=== PATIENT | female | born 1970 | race Caucasian/White ===

== ENCOUNTER 2018-06-13 17:44 | Inpatient (IN) | payer MEDICARE, MEDICAID ==
[~2018-06-13] VITALS: Ht 170.2 cm; Wt 84.1 kg
[~2018-06-13 17:44] MED LIST: ARIP15TA2 PO; BACTDSB PO; BENZ1TAB10 PO; BUSP5TAB3 PO; CLON1 PO; DIPH25 PO; DIVA-76 PO; DOCU250C91 PO; QUET200T PO; SENN-175 PO; TOPI25 PO; [UNRECOGNIZED DRUG - CODE] PO
[2018-06-13 18:38] LABS: GLUCOSE,POINT OF CARE 143 MG/DL (70-110)
[2018-06-13] MEDS ORDERED: SODIUM CHLORIDE 0.9% 2,000 ML IV ONE (19:00)
[2018-06-13 19:26] LABS: BASOPHILS % (AUTO) 0.4 % (0.0-2.0); EOSINOPHILS % (AUTO) 0.1 % (1.0-6.0); HEMATOCRIT 36.1 % (36-46); HEMOGLOBIN 12.2 g/dL (12.0-16.0); LYMPHOCYTES # (AUTO) 0.6 K/uL (1.0-4.8); LYMPHOCYTES % (AUTO) 8.3 % (22.0-44.0); MEAN CORPUSCULAR HEMOGLOBIN 29.9 pg (26.0-34.0); MEAN CORPUSCULAR HGB CONC 33.7 G/dL (31.0-37.0); MEAN CORPUSCULAR VOLUME 89 fL (80-100); MONOCYTES # (AUTO) 1.3 K/uL (0.1-1.0); MONOCYTES % (AUTO) 18.4 % (2.0-9.0); NEUTROPHILS % (AUTO) 72.8 % (40.0-70.0); PLATELET COUNT (AUTO) 271 K/uL (150-450); RED BLOOD CELL COUNT(AUTO) 4.06 MIL/uL (4.00-5.20); RED CELL DISTRIBUTION WIDTH 14.6 % (11.5-14.5)
[2018-06-13 19:35] LABS: APPEARANCE,URINE TURBID (CLEAR); BILIRUBIN,URINE NEGATIVE (NEGATIVE); GLUCOSE, URINE (UA) NEGATIVE (NEGATIVE); KETONES,URINE TRACE mg/dL (NEGATIVE); LEUKOCYTE ESTERASE ,URINE LARGE (NEGATIVE); NITRATE,URINE NEGATIVE (NEGATIVE); OCCULT BLOOD,URINE MODERATE (NEGATIVE); PH,URINE 5.5 (5.0-8.0); PROTEIN,URINE TRACE (NEGATIVE)
[2018-06-13 19:42] LABS: ANION GAP 11 mmol/L (8-16); CALCIUM, TOTAL 8.9 mg/dL (8.8-10.5); CARBON DIOXIDE 28 mmol/L (22-29); CHLORIDE 104 mmol/L (98-107); CREATININE 0.84 mg/dL (0.60-1.30); GLOMERULAR FILTR. RATE CALC > 60 mL/min (>60); GLUCOSE,RANDOM 136 mg/dL (70-110); POTASSIUM 3.4 mmol/L (3.5-5.1); SODIUM SERUM 143 mmol/L (136-145); UREA NITROGEN, BLOOD 11 mg/dL (7-18)
[2018-06-13] MEDS ORDERED: ACETAMINOPHEN 1000 MG/ISO-OSM 100 ML IV ONE (19:45)
[2018-06-13] MEDS ORDERED: SODIUM CHLORIDE 0.9% 1,000 ML IV ONE ×2 (19:45→22:15)
[2018-06-13 19:46] LABS: ALANINE AMINOTRANSFERASE 35 U/L (12-78); ALBUMIN 2.6 g/dL (3.4-5.0); ALKALINE PHOSPHATASE 116 U/L (46-116); ASPARTATE AMINOTRANSFERASE 63 U/L (15-37); BILIRUBIN,TOTAL 0.3 mg/dL (0.1-1.0); LIPASE 175 U/L (73-393); VALPROIC ACID 30 mcg/mL (50-100)
[2018-06-13 19:51] LABS: LACTIC ACID 1.6 mmol/L (0.4-2.0)
[2018-06-13 19:54] LABS: B-TYPE NATRIURETIC PEPTIDE 29 pg/mL (0-100)
[2018-06-13 20:40] LABS: BACTERIA,URINE Many /HPF (None Seen); WBC,URINE >100 /HPF (0-5)
[2018-06-13 20:41] LABS: SQUAMOUS EPITHELIAL CELL,UR Few /LPF (None Seen)
[2018-06-13] MEDS ORDERED: CefTRIAXone SODIUM 1 GM in DEXTROSE 5%-WATER 10 ML IV ONE (20:45)
[2018-06-13 21:06] LABS: AMMONIA 15 umol/L (11-32); TROPONIN I < 0.02 ng/mL (0.00-0.05)
[2018-06-13 21:54] VITALS: BP 136/83
[2018-06-13] MEDS ORDERED: ACETAMINOPHEN 325 MG TABLET PO PRN (22:15)
[2018-06-13] MEDS ORDERED: MORPHINE SULFATE 2 MG/ML SYRINGE IVP PRN (22:15)
[2018-06-13] MEDS ORDERED: ONDANSETRON HCL 4 MG/2 ML VIAL IVP PRN (22:15)
[2018-06-13] MEDS ORDERED: ZOLPIDEM TARTRATE 5 MG TABLET PO PRN (22:15)
[2018-06-13] MEDS ORDERED: MAGNESIUM HYDROXIDE SUSPENSION 30 ML UDCUP PO PRN (22:15)
[2018-06-13] MEDS ORDERED: HYDROCODONE/ACETAMINOPHEN 5-325 MG TABLET PO PRN (22:15)
[2018-06-13] MEDS ORDERED: BISACODYL 10 MG RECTAL RECTAL SUPPOSITORY PR PRN (22:15)
[2018-06-13] MEDS: HEPARIN SODIUM,PORCINE 5,000 UNITS/ML VIAL SQ SCH (22:52)
[2018-06-13 23:19] VITALS: BP 132/83
[2018-06-14 07:29] VITALS: BP 155/91
[2018-06-14] MEDS: ARIPiprazole 15 MG TABLET PO SCH (09:00)
[2018-06-14] MEDS: QUEtiapine FUMARATE 200 MG TABLET PO SCH ×3 (09:28→20:55)
[2018-06-14] MEDS: BENZTROPINE MESYLATE 1 MG TABLET PO SCH ×2 (09:28→20:54)
[2018-06-14] MEDS: ClonazePAM 1 MG TABLET PO SCH ×2 (09:28→20:54)
[2018-06-14] MEDS: DOCUSATE SODIUM 100 MG CAPSULE PO SCH ×2 (09:28→20:54)
[2018-06-14] MEDS: PANTOPRAZOLE SODIUM 40 MG DR TABLET PO SCH (09:29)
[2018-06-14] MEDS: TOPIRAMATE 25 MG TABLET PO SCH ×2 (09:29→20:54)
[2018-06-14] MEDS: HEPARIN SODIUM,PORCINE 5,000 UNITS/ML VIAL SQ SCH ×2 (09:29→23:25)
[2018-06-14] MEDS: POTASSIUM CHLORIDE 20 MEQ ER TABLET PO PRN ×2 (09:43→20:54)
[2018-06-14] MEDS: SODIUM CHLORIDE 0.9% 1,000 ML IV SCH ×2 (10:00→21:06)
[2018-06-14 12:00] VITALS: BP 130/77
[2018-06-14 15:43] VITALS: BP 128/83
[2018-06-14 19:54] VITALS: BP 143/86
[2018-06-14] MEDS: CefTRIAXone SODIUM 1 GM in DEXTROSE 5%-WATER 10 ML IV SCH (20:54)
[2018-06-14] MEDS: DIVALPROEX SODIUM 500 MG DR TABLET PO SCH (20:54)
[2018-06-14 23:25] VITALS: BP 121/83
[2018-06-15 04:28] VITALS: BP 137/81
[2018-06-15 06:47] LABS: HEMATOCRIT 34.1 % (36-46); HEMOGLOBIN 11.5 g/dL (12.0-16.0); LYMPHOCYTES # (AUTO) 1.2 K/uL (1.0-4.8); LYMPHOCYTES % (AUTO) 25.7 % (22.0-44.0); MEAN CORPUSCULAR HEMOGLOBIN 30.2 pg (26.0-34.0); MEAN CORPUSCULAR HGB CONC 33.7 G/dL (31.0-37.0); MEAN CORPUSCULAR VOLUME 90 fL (80-100); MONOCYTES # (AUTO) 0.8 K/uL (0.1-1.0); MONOCYTES % (AUTO) 17.7 % (2.0-9.0); NEUTROPHILS # (AUTO) 2.4 K/uL (1.8-7.7); NEUTROPHILS % (AUTO) 51.6 % (40.0-70.0); PLATELET COUNT (AUTO) 248 K/uL (150-450); RED BLOOD CELL COUNT(AUTO) 3.81 MIL/uL (4.00-5.20); RED CELL DISTRIBUTION WIDTH 14.3 % (11.5-14.5)
[2018-06-15 07:11] LABS: ANION GAP 12 mmol/L (8-16); CALCIUM, TOTAL 8.7 mg/dL (8.8-10.5); CARBON DIOXIDE 20 mmol/L (22-29); CHLORIDE 110 mmol/L (98-107); CREATININE 0.69 mg/dL (0.60-1.30); GLOMERULAR FILTR. RATE CALC > 60 mL/min (>60); GLUCOSE,RANDOM 89 mg/dL (70-110); POTASSIUM 3.5 mmol/L (3.5-5.1); SODIUM SERUM 142 mmol/L (136-145); UREA NITROGEN, BLOOD 8 mg/dL (7-18)
[2018-06-15 07:21] VITALS: BP 153/79
[2018-06-15] MEDS: SODIUM CHLORIDE 0.9% 1,000 ML IV SCH ×2 (09:14→22:53)
[2018-06-15] MEDS: DOCUSATE SODIUM 100 MG CAPSULE PO SCH ×2 (10:28→22:53)
[2018-06-15] MEDS: HEPARIN SODIUM,PORCINE 5,000 UNITS/ML VIAL SQ SCH ×3 (10:28→22:56)
[2018-06-15] MEDS: ARIPiprazole 15 MG TABLET PO SCH (10:28)
[2018-06-15] MEDS: BENZTROPINE MESYLATE 1 MG TABLET PO SCH (10:28)
[2018-06-15] MEDS: PANTOPRAZOLE SODIUM 40 MG DR TABLET PO SCH (10:29)
[2018-06-15] MEDS: QUEtiapine FUMARATE 200 MG TABLET PO SCH ×3 (10:29→22:55)
[2018-06-15] MEDS: TOPIRAMATE 25 MG TABLET PO SCH ×2 (10:29→22:53)
[2018-06-15] MEDS: ClonazePAM 1 MG TABLET PO SCH ×2 (10:29→22:53)
[2018-06-15 11:24] VITALS: BP 138/96
[2018-06-15] MEDS ORDERED: SODIUM CHLORIDE 0.9% 1,000 ML IV ONE (15:15)
[2018-06-15 15:27] VITALS: BP 158/75
[2018-06-15 19:49] VITALS: BP 152/92
[2018-06-15] MEDS: CefTRIAXone SODIUM 1 GM in DEXTROSE 5%-WATER 10 ML IV SCH (20:22)
[2018-06-15] MEDS: DIVALPROEX SODIUM 500 MG DR TABLET PO SCH (22:55)
[2018-06-16] VITALS (7 sets, daily range): BP systolic 126–147; BP diastolic 70–96
[2018-06-16] MEDS: BENZTROPINE MESYLATE 1 MG TABLET PO SCH ×2 (02:20→09:00)
[2018-06-16 05:57] LABS: ANION GAP 10 mmol/L (8-16); CALCIUM, TOTAL 8.8 mg/dL (8.8-10.5); CARBON DIOXIDE 23 mmol/L (22-29); CHLORIDE 108 mmol/L (98-107); CREATININE 0.66 mg/dL (0.60-1.30); GLOMERULAR FILTR. RATE CALC > 60 mL/min (>60); GLUCOSE,RANDOM 95 mg/dL (70-110); POTASSIUM 3.2 mmol/L (3.5-5.1); SODIUM SERUM 141 mmol/L (136-145); UREA NITROGEN, BLOOD 12 mg/dL (7-18)
[2018-06-16 06:25] LABS: BASOPHILS % (AUTO) 1.3 % (0.0-2.0); EOSINOPHILS % (AUTO) 4.7 % (1.0-6.0); HEMATOCRIT 36.9 % (36-46); HEMOGLOBIN 12.5 g/dL (12.0-16.0); LYMPHOCYTES # (AUTO) 1.2 K/uL (1.0-4.8); LYMPHOCYTES % (AUTO) 27.7 % (22.0-44.0); MEAN CORPUSCULAR HEMOGLOBIN 30.2 pg (26.0-34.0); MEAN CORPUSCULAR HGB CONC 33.8 G/dL (31.0-37.0); MEAN CORPUSCULAR VOLUME 89 fL (80-100); MONOCYTES # (AUTO) 0.8 K/uL (0.1-1.0); MONOCYTES % (AUTO) 18.7 % (2.0-9.0); NEUTROPHILS # (AUTO) 2.1 K/uL (1.8-7.7); NEUTROPHILS % (AUTO) 47.6 % (40.0-70.0); PLATELET COUNT (AUTO) 275 K/uL (150-450); RED BLOOD CELL COUNT(AUTO) 4.14 MIL/uL (4.00-5.20); RED CELL DISTRIBUTION WIDTH 14.3 % (11.5-14.5)
[2018-06-16] MEDS: HEPARIN SODIUM,PORCINE 5,000 UNITS/ML VIAL SQ SCH ×3 (08:33→23:32)
[2018-06-16] MEDS: DOCUSATE SODIUM 100 MG CAPSULE PO SCH ×2 (09:00→19:50)
[2018-06-16] MEDS: PANTOPRAZOLE SODIUM 40 MG DR TABLET PO SCH (09:00)
[2018-06-16] MEDS: TOPIRAMATE 25 MG TABLET PO SCH ×2 (09:00→19:50)
[2018-06-16] MEDS ORDERED: ARIPiprazole 15 MG TABLET PO SCH (09:00)
[2018-06-16] MEDS: ClonazePAM 1 MG TABLET PO SCH (09:00)
[2018-06-16] MEDS: QUEtiapine FUMARATE 200 MG TABLET PO SCH (09:00)
[2018-06-16] MEDS ORDERED: SODIUM CHLORIDE 0.9% 500 ML IV ONE (13:17)
[2018-06-16] MEDS: SODIUM CHLORIDE 0.9% 1,000 ML IV SCH (13:22)
[2018-06-16] MEDS: POTASSIUM CHL 10 MEQ/WATER 50 ML IV PRN ×3 (13:25→17:37)
[2018-06-16] MEDS: CefTRIAXone SODIUM 1 GM in DEXTROSE 5%-WATER 10 ML IV SCH (19:51)
[2018-06-16] MEDS: POTASSIUM CHLORIDE 20 MEQ ER TABLET PO PRN (22:32)
[2018-06-17] MEDS: SODIUM CHLORIDE 0.9% 1,000 ML IV SCH ×2 (00:30→13:00)
[2018-06-17 03:54] VITALS: BP 146/77
[2018-06-17] MEDS ORDERED: LORazepam 2 MG/ML VIAL IM ONE (06:30)
[2018-06-17] MEDS ORDERED: HALOPERIDOL LACTATE 5 MG/ML VIAL IM ONE (06:30)
[2018-06-17] MEDS ORDERED: DiphenhydrAMINE HCL 50 MG/ML VIAL IM ONE (06:30)
[2018-06-17 06:35] LABS: BASOPHILS % (AUTO) 0.7 % (0.0-2.0); EOSINOPHILS % (AUTO) 3.3 % (1.0-6.0); HEMATOCRIT 37.3 % (36-46); HEMOGLOBIN 12.6 g/dL (12.0-16.0); LYMPHOCYTES # (AUTO) 1.2 K/uL (1.0-4.8); MEAN CORPUSCULAR HEMOGLOBIN 30.1 pg (26.0-34.0); MEAN CORPUSCULAR HGB CONC 33.7 G/dL (31.0-37.0); MEAN CORPUSCULAR VOLUME 89 fL (80-100); MONOCYTES # (AUTO) 0.8 K/uL (0.1-1.0); MONOCYTES % (AUTO) 14.8 % (2.0-9.0); NEUTROPHILS # (AUTO) 3.1 K/uL (1.8-7.7); NEUTROPHILS % (AUTO) 59.2 % (40.0-70.0); PLATELET COUNT (AUTO) 311 K/uL (150-450); RED BLOOD CELL COUNT(AUTO) 4.18 MIL/uL (4.00-5.20); RED CELL DISTRIBUTION WIDTH 14.6 % (11.5-14.5)
[2018-06-17 06:57] LABS: ANION GAP 15 mmol/L (8-16); CALCIUM, TOTAL 9.1 mg/dL (8.8-10.5); CARBON DIOXIDE 19 mmol/L (22-29); CHLORIDE 110 mmol/L (98-107); CREATININE 0.68 mg/dL (0.60-1.30); GLOMERULAR FILTR. RATE CALC > 60 mL/min (>60); GLUCOSE,RANDOM 107 mg/dL (70-110); POTASSIUM 3.5 mmol/L (3.5-5.1); SODIUM SERUM 144 mmol/L (136-145); UREA NITROGEN, BLOOD 14 mg/dL (7-18)
[2018-06-17] MEDS: PANTOPRAZOLE SODIUM 40 MG DR TABLET PO SCH (08:25)
[2018-06-17] MEDS: DOCUSATE SODIUM 100 MG CAPSULE PO SCH ×2 (08:25→20:08)
[2018-06-17] MEDS: TOPIRAMATE 25 MG TABLET PO SCH ×2 (08:25→20:08)
[2018-06-17] MEDS: HEPARIN SODIUM,PORCINE 5,000 UNITS/ML VIAL SQ SCH ×3 (08:26→23:38)
[2018-06-17 08:49] VITALS: BP 136/87
[2018-06-17 12:25] VITALS: BP 151/88
[2018-06-17] MEDS: LEVOFLOXACIN 500 MG/D5% WATER 100 ML IV SCH (16:29)
[2018-06-17 16:47] VITALS: BP 149/85
[2018-06-17 19:32] VITALS: BP 139/84
[2018-06-17] MEDS: DIVALPROEX SODIUM 500 MG DR TABLET PO SCH (20:08)
[2018-06-17] MEDS: RisperiDONE 1 MG TABLET PO SCH (20:08)
[2018-06-17] MEDS: HALOPERIDOL LACTATE 5 MG/ML VIAL IM PRN (20:55)
[2018-06-17] MEDS: LORazepam 2 MG/ML VIAL IM PRN (20:55)
[2018-06-18] MEDS: SODIUM CHLORIDE 0.9% 1,000 ML IV SCH ×2 (01:30→14:00)
[2018-06-18 06:05] VITALS: BP 128/76
[2018-06-18] MEDS: RisperiDONE 1 MG TABLET PO SCH (07:41)
[2018-06-18] MEDS: DIVALPROEX SODIUM 500 MG DR TABLET PO SCH (07:41)
[2018-06-18] MEDS: LORazepam 2 MG/ML VIAL IM PRN (07:41)
[2018-06-18] MEDS: HALOPERIDOL LACTATE 5 MG/ML VIAL IM PRN (07:41)
[2018-06-18] MEDS: HEPARIN SODIUM,PORCINE 5,000 UNITS/ML VIAL SQ SCH ×2 (07:42→16:00)
[2018-06-18] MEDS: DOCUSATE SODIUM 100 MG CAPSULE PO SCH (07:45)
[2018-06-18] MEDS: PANTOPRAZOLE SODIUM 40 MG DR TABLET PO SCH (07:45)
[2018-06-18] MEDS: TOPIRAMATE 25 MG TABLET PO SCH (07:48)
[2018-06-18 08:01] VITALS: BP 137/84
[2018-06-18 11:24] VITALS: BP 156/77
[2018-06-18 16:16] VITALS: BP 146/94
[2018-06-18] MEDS: LEVOFLOXACIN 500 MG/D5% WATER 100 ML IV SCH (16:44)
[2018-06-18 17:10] VITALS: BP 126/86
[2018-06-19] MEDS ORDERED: PANT40TA25 PO (19:51)
[2018-06-19] MEDS ORDERED: RISP1 PO (19:51)
[2018-06-19] MEDS ORDERED: HEPA500018 SQ (19:51)
[2018-06-19] MEDS ORDERED: LEVO500 PO (19:51)
== END 2018-06-18 17:35 | disposition home or self-care (01) | DRG 871 ==
LOC: EMS 17:45 → 6N 21:00
PROVIDERS: ADMIT Internal Medicine; ATTEND Internal Medicine
DX: A41.9 Sepsis, unspecified organism (principal); G93.41 Metabolic encephalopathy; N39.0 Urinary tract infection, site not specified; F72 Severe intellectual disabilities; N12 Tubulo-interstitial nephritis, not specified as acute or chronic; E87.6 Hypokalemia; F25.9 Schizoaffective disorder, unspecified; Z16.19 Resistance to other specified beta lactam antibiotics; R62.50 Unspecified lack of expected normal physiological development in childhood; B96.20 Unspecified Escherichia coli [E. coli] as the cause of diseases classified elsewhere; F41.9 Anxiety disorder, unspecified; K59.00 Constipation, unspecified; Z79.899 Other long term (current) drug therapy
CPT/HCPCS: 51702; 83605; 84132; 87040; 87081; 87086; 93005; 96365; 96375; 97162; 97530; 99291; J0131; J0696; J1200; J1630; J1644; J1956; J2060; J3480; J7030; J7040; J7060

== ENCOUNTER 2018-06-19 18:17 | Inpatient (IN) | payer MEDICARE, MEDICAID ==
[~2018-06-19] VITALS: Ht 167.6 cm; Wt 78.6 kg
[2018-06-19 19:33] LABS: GLUCOSE,POINT OF CARE 127 MG/DL (70-110)
[2018-06-19] MEDS ORDERED: LEVO500 PO (19:51)
[2018-06-19] MEDS ORDERED: PANT40TA25 PO (19:51)
[2018-06-19] MEDS ORDERED: RISP1 PO (19:51)
[2018-06-19] MEDS ORDERED: HEPA500018 SQ (19:51)
[2018-06-19 19:55] LABS: BASOPHILS % (AUTO) 0.8 % (0.0-2.0); EOSINOPHILS % (AUTO) 2.9 % (1.0-6.0); HEMATOCRIT 34.7 % (36-46); HEMOGLOBIN 11.7 g/dL (12.0-16.0); LYMPHOCYTES # (AUTO) 2.1 K/uL (1.0-4.8); LYMPHOCYTES % (AUTO) 19.7 % (22.0-44.0); MEAN CORPUSCULAR HEMOGLOBIN 29.9 pg (26.0-34.0); MEAN CORPUSCULAR HGB CONC 33.7 G/dL (31.0-37.0); MEAN CORPUSCULAR VOLUME 89 fL (80-100); MONOCYTES # (AUTO) 1.1 K/uL (0.1-1.0); MONOCYTES % (AUTO) 10.7 % (2.0-9.0); NEUTROPHILS # (AUTO) 6.9 K/uL (1.8-7.7); NEUTROPHILS % (AUTO) 65.9 % (40.0-70.0); PLATELET COUNT (AUTO) 330 K/uL (150-450); RED BLOOD CELL COUNT(AUTO) 3.91 MIL/uL (4.00-5.20); RED CELL DISTRIBUTION WIDTH 14.7 % (11.5-14.5)
[2018-06-19 20:09] LABS: ANION GAP 11 mmol/L (8-16); CALCIUM, TOTAL 8.9 mg/dL (8.8-10.5); CARBON DIOXIDE 25 mmol/L (22-29); CHLORIDE 103 mmol/L (98-107); CREATININE 0.89 mg/dL (0.60-1.30); GLOMERULAR FILTR. RATE CALC > 60 mL/min (>60); GLUCOSE,RANDOM 109 mg/dL (70-110); POTASSIUM 3.1 mmol/L (3.5-5.1); SODIUM SERUM 139 mmol/L (136-145); UREA NITROGEN, BLOOD 20 mg/dL (7-18)
[2018-06-19 20:15] LABS: ALANINE AMINOTRANSFERASE 62 U/L (12-78); ALBUMIN 2.2 g/dL (3.4-5.0); ALKALINE PHOSPHATASE 164 U/L (46-116); ASPARTATE AMINOTRANSFERASE 44 U/L (15-37); BILIRUBIN,TOTAL 0.3 mg/dL (0.1-1.0); TOTAL PROTEIN, SERUM 7.7 g/dL (6.4-8.2)
[2018-06-19 21:33] LABS: APPEARANCE,URINE CLOUDY (CLEAR); BILIRUBIN,URINE NEGATIVE (NEGATIVE); GLUCOSE, URINE (UA) NEGATIVE (NEGATIVE); KETONES,URINE NEGATIVE (NEGATIVE); LEUKOCYTE ESTERASE ,URINE NEGATIVE (NEGATIVE); NITRATE,URINE NEGATIVE (NEGATIVE); OCCULT BLOOD,URINE NEGATIVE (NEGATIVE); PROTEIN,URINE NEGATIVE (NEGATIVE)
[2018-06-19 21:37] LABS: AMPHET/METH SCREEN,URINE NEGATIVE (NEGATIVE); BARBITURATE SCREEN, URINE NEGATIVE (NEGATIVE); BENZODIAZEPINES SCREEN,URINE NEGATIVE (NEGATIVE); CANNABINOID SCREEN,URINE NEGATIVE (NEGATIVE); COCAINE SCREEN,URINE NEGATIVE (NEGATIVE); METHADONE SCREEN, URINE NEGATIVE (NEGATIVE); OPIATE SCREEN,URINE NEGATIVE (NEGATIVE); PHENCYCLIDINE SCREEN,URINE NEGATIVE (NEGATIVE)
[2018-06-19 21:43] LABS: BACTERIA,URINE Rare /HPF (None Seen); RBC,URINE 0-2 /HPF (0-2); WBC,URINE 0-2 /HPF (0-5)
[2018-06-19 21:44] LABS: SQUAMOUS EPITHELIAL CELL,UR Few /LPF (None Seen)
[2018-06-19] MEDS ORDERED: POTASSIUM CHLORIDE 10% 40 MEQ/30 ML LIQUID UDCUP PO ONE (22:00)
[2018-06-19] MEDS ORDERED: ACETAMINOPHEN 325 MG TABLET PO PRN (22:30)
[2018-06-19] MEDS ORDERED: OLANZapine 5 MG RAPDIS TABLET PO PRN (22:30)
[2018-06-19] MEDS ORDERED: IBUPROFEN 400 MG TABLET PO PRN (22:30)
[2018-06-19] MEDS ORDERED: HALOPERIDOL 5 MG TABLET PO PRN (22:30)
[2018-06-19] MEDS ORDERED: HALOPERIDOL LACTATE 5 MG/ML VIAL IVP ONE (23:30)
[2018-06-19] MEDS ORDERED: LORazepam 2 MG/ML VIAL IVP ONE (23:30)
[2018-06-20 01:15] VITALS: BP 129/82
[2018-06-20] MEDS ORDERED: ALBUTEROL SULFATE HFA 90 MCG/PUFF 8 GM INHALER IH PRN (06:45)
[2018-06-20] MEDS ORDERED: LOPERAMIDE HCL 2 MG CAPSULE PO PRN (06:45)
[2018-06-20] MEDS ORDERED: PETROLATUM,WHITE 71 GM JELLY TP PRN (06:45)
[2018-06-20] MEDS ORDERED: DOCUSATE SODIUM 100 MG CAPSULE PO PRN (06:45)
[2018-06-20] MEDS ORDERED: MAG HYDROX/AL HYDROX/SIMETH ES 30 ML SUSPENSION UDCUP PO PRN (06:45)
[2018-06-20] MEDS ORDERED: ONDANSETRON HCL 4 MG TABLET PO PRN (06:45)
[2018-06-20] MEDS ORDERED: MAGNESIUM HYDROXIDE SUSPENSION 30 ML UDCUP PO PRN (06:45)
[2018-06-20] MEDS ORDERED: CloNIDine HCL 0.1 MG TABLET PO PRN (06:45)
[2018-06-20 06:56] LABS: BASOPHILS % (AUTO) 0.9 % (0.0-2.0); EOSINOPHILS % (AUTO) 6.4 % (1.0-6.0); HEMATOCRIT 33.5 % (36-46); HEMOGLOBIN 11.3 g/dL (12.0-16.0); LYMPHOCYTES # (AUTO) 1.8 K/uL (1.0-4.8); LYMPHOCYTES % (AUTO) 25.7 % (22.0-44.0); MEAN CORPUSCULAR HGB CONC 33.8 G/dL (31.0-37.0); MEAN CORPUSCULAR VOLUME 89 fL (80-100); MONOCYTES # (AUTO) 0.7 K/uL (0.1-1.0); MONOCYTES % (AUTO) 10.6 % (2.0-9.0); NEUTROPHILS # (AUTO) 3.9 K/uL (1.8-7.7); NEUTROPHILS % (AUTO) 56.4 % (40.0-70.0); PLATELET COUNT (AUTO) 326 K/uL (150-450); RED BLOOD CELL COUNT(AUTO) 3.78 MIL/uL (4.00-5.20); RED CELL DISTRIBUTION WIDTH 14.4 % (11.5-14.5)
[2018-06-20 07:22] LABS: ALANINE AMINOTRANSFERASE 56 U/L (12-78); ALBUMIN 2.1 g/dL (3.4-5.0); ALKALINE PHOSPHATASE 148 U/L (46-116); ANION GAP 10 mmol/L (8-16); ASPARTATE AMINOTRANSFERASE 38 U/L (15-37); BILIRUBIN,TOTAL 0.3 mg/dL (0.1-1.0); CALCIUM, TOTAL 8.7 mg/dL (8.8-10.5); CARBON DIOXIDE 25 mmol/L (22-29); CHLORIDE 106 mmol/L (98-107); CHOLESTEROL 143 mg/dL (131-200); CREATININE 0.72 mg/dL (0.60-1.30); GLOMERULAR FILTR. RATE CALC > 60 mL/min (>60); GLUCOSE,RANDOM 94 mg/dL (70-110); HDL CHOLESTEROL 24 mg/dL (40-60); LDL CHOL (CALC.) 93 mg/dL (0-130); POTASSIUM 3.5 mmol/L (3.5-5.1); SODIUM SERUM 141 mmol/L (136-145); THYROID STIMULATING HORMONE 2.92 uIU/mL (0.36-3.74); TOTAL PROTEIN, SERUM 7.3 g/dL (6.4-8.2); TRIGLYCERIDES 131 mg/dL (15-150); UREA NITROGEN, BLOOD 15 mg/dL (7-18)
[2018-06-20] MEDS: NICOTINE 14 MG/24 HOUR PATCH TD SCH (09:13)
[2018-06-20 14:27] VITALS: BP 119/79
[2018-06-20 17:00] VITALS: BP 106/68
[2018-06-20] MEDS: DIVALPROEX SODIUM 500 MG DR TABLET PO SCH ×2 (17:00→17:43)
[2018-06-20] MEDS: QUEtiapine FUMARATE 200 MG TABLET PO SCH ×2 (17:00→17:43)
[2018-06-21 07:52] LABS: % IRON SATURATION 24.3 % (22-44)
[2018-06-21] MEDS: QUEtiapine FUMARATE 200 MG TABLET PO SCH ×2 (08:21→16:20)
[2018-06-21] MEDS: NICOTINE 14 MG/24 HOUR PATCH TD SCH (08:21)
[2018-06-21] MEDS: DIVALPROEX SODIUM 500 MG DR TABLET PO SCH ×2 (08:21→16:20)
[2018-06-21 17:30] VITALS: BP 145/85
[2018-06-22] MEDS: DIVALPROEX SODIUM 500 MG DR TABLET PO SCH ×2 (08:36→17:01)
[2018-06-22] MEDS: QUEtiapine FUMARATE 200 MG TABLET PO SCH ×2 (08:36→17:01)
[2018-06-22] MEDS: NICOTINE 14 MG/24 HOUR PATCH TD SCH (08:41)
[2018-06-22 16:12] VITALS: BP 133/69
[2018-06-23] MEDS: DIVALPROEX SODIUM 500 MG DR TABLET PO SCH ×2 (08:12→17:02)
[2018-06-23] MEDS: QUEtiapine FUMARATE 100 MG TABLET PO SCH ×2 (08:13→17:03)
[2018-06-23] MEDS: NICOTINE 14 MG/24 HOUR PATCH TD SCH (08:16)
[2018-06-23 09:17] VITALS: BP 142/87
[2018-06-23 21:21] VITALS: BP 101/62
[2018-06-24] MEDS: NICOTINE 14 MG/24 HOUR PATCH TD SCH (09:00)
[2018-06-24] MEDS: QUEtiapine FUMARATE 100 MG TABLET PO SCH ×2 (09:23→16:54)
[2018-06-24] MEDS: DIVALPROEX SODIUM 500 MG DR TABLET PO SCH ×2 (09:27→16:53)
[2018-06-24 10:48] VITALS: BP 125/80
[2018-06-24] MEDS: FERROUS SULFATE 325 MG EC TABLET PO SCH (16:54)
[2018-06-24 17:00] VITALS: BP 100/66
[2018-06-25] MEDS: FERROUS SULFATE 325 MG EC TABLET PO SCH ×3 (07:19→18:04)
[2018-06-25] MEDS: DIVALPROEX SODIUM 500 MG DR TABLET PO SCH ×2 (08:31→18:04)
[2018-06-25] MEDS: QUEtiapine FUMARATE 100 MG TABLET PO SCH ×2 (08:32→18:04)
[2018-06-25] MEDS: NICOTINE 14 MG/24 HOUR PATCH TD SCH (08:34)
[2018-06-25 08:50] VITALS: BP 118/95
[2018-06-26] MEDS: FERROUS SULFATE 325 MG EC TABLET PO SCH ×3 (07:00→18:17)
[2018-06-26 08:12] VITALS: BP 120/63
[2018-06-26] MEDS: DIVALPROEX SODIUM 500 MG DR TABLET PO SCH ×2 (08:33→18:17)
[2018-06-26] MEDS: QUEtiapine FUMARATE 100 MG TABLET PO SCH ×2 (08:35→18:17)
[2018-06-26] MEDS: NICOTINE 14 MG/24 HOUR PATCH TD SCH (09:00)
[2018-06-26 20:50] VITALS: BP 125/68
[2018-06-27] MEDS: FERROUS SULFATE 325 MG EC TABLET PO SCH ×3 (07:30→16:52)
[2018-06-27 08:03] VITALS: BP 106/70
[2018-06-27] MEDS: QUEtiapine FUMARATE 100 MG TABLET PO SCH ×2 (08:20→16:53)
[2018-06-27] MEDS: DIVALPROEX SODIUM 500 MG DR TABLET PO SCH ×2 (08:20→16:53)
[2018-06-27 19:00] VITALS: BP 124/65
[2018-06-28] MEDS: FERROUS SULFATE 325 MG EC TABLET PO SCH ×3 (07:28→16:47)
[2018-06-28 08:02] VITALS: BP 124/53
[2018-06-28] MEDS: QUEtiapine FUMARATE 100 MG TABLET PO SCH ×2 (08:09→16:47)
[2018-06-28] MEDS: DIVALPROEX SODIUM 500 MG DR TABLET PO SCH ×2 (08:09→16:47)
[2018-06-28 16:55] VITALS: BP 106/63
[2018-06-29] MEDS: FERROUS SULFATE 325 MG EC TABLET PO SCH ×3 (07:13→17:12)
[2018-06-29 08:33] VITALS: BP 138/70
[2018-06-29] MEDS: QUEtiapine FUMARATE 100 MG TABLET PO SCH ×2 (09:07→16:36)
[2018-06-29] MEDS: DIVALPROEX SODIUM 500 MG DR TABLET PO SCH ×2 (09:07→16:37)
[2018-06-29 16:22] VITALS: BP 108/71
[2018-06-30] MEDS: FERROUS SULFATE 325 MG EC TABLET PO SCH ×3 (06:57→16:09)
[2018-06-30] MEDS: DIVALPROEX SODIUM 500 MG DR TABLET PO SCH ×2 (08:36→16:09)
[2018-06-30] MEDS: QUEtiapine FUMARATE 100 MG TABLET PO SCH ×2 (08:37→16:09)
[2018-06-30 16:44] VITALS: BP 110/65
[2018-07-01] MEDS: FERROUS SULFATE 325 MG EC TABLET PO SCH ×3 (07:20→16:49)
[2018-07-01] MEDS: QUEtiapine FUMARATE 100 MG TABLET PO SCH (09:18)
[2018-07-01] MEDS: DIVALPROEX SODIUM 500 MG DR TABLET PO SCH ×2 (09:19→16:49)
[2018-07-01 09:45] VITALS: BP 104/57
[2018-07-01 17:09] VITALS: BP 102/59
[2018-07-01] MEDS: QUEtiapine FUMARATE 300 MG TABLET PO SCH (20:31)
[2018-07-02] MEDS: FERROUS SULFATE 325 MG EC TABLET PO SCH ×3 (07:02→16:36)
[2018-07-02 08:32] VITALS: BP 108/62
[2018-07-02] MEDS: DIVALPROEX SODIUM 500 MG DR TABLET PO SCH ×2 (08:36→16:37)
[2018-07-02] MEDS: QUEtiapine FUMARATE 100 MG TABLET PO SCH (08:37)
[2018-07-02 16:22] VITALS: BP 103/67
[2018-07-02] MEDS: QUEtiapine FUMARATE 300 MG TABLET PO SCH (20:35)
[2018-07-03] MEDS: FERROUS SULFATE 325 MG EC TABLET PO SCH ×3 (07:19→17:01)
[2018-07-03] MEDS: DIVALPROEX SODIUM 500 MG DR TABLET PO SCH ×2 (11:30→17:01)
[2018-07-03] MEDS: QUEtiapine FUMARATE 100 MG TABLET PO SCH (11:31)
[2018-07-03 16:57] VITALS: BP 98/48
[2018-07-03] MEDS: QUEtiapine FUMARATE 300 MG TABLET PO SCH (20:07)
[2018-07-04] MEDS: FERROUS SULFATE 325 MG EC TABLET PO SCH ×3 (07:06→17:05)
[2018-07-04] MEDS: DIVALPROEX SODIUM 500 MG DR TABLET PO SCH ×2 (09:35→17:05)
[2018-07-04] MEDS: QUEtiapine FUMARATE 100 MG TABLET PO SCH (09:36)
[2018-07-04 16:05] VITALS: BP 119/74
[2018-07-04] MEDS: QUEtiapine FUMARATE 300 MG TABLET PO SCH (19:50)
[2018-07-05] MEDS: FERROUS SULFATE 325 MG EC TABLET PO SCH ×3 (07:23→17:33)
[2018-07-05] MEDS: QUEtiapine FUMARATE 100 MG TABLET PO SCH (08:38)
[2018-07-05] MEDS: DIVALPROEX SODIUM 500 MG DR TABLET PO SCH ×2 (08:38→17:33)
[2018-07-05 16:10] VITALS: BP 98/53
[2018-07-05] MEDS: QUEtiapine FUMARATE 300 MG TABLET PO SCH (20:29)
[2018-07-06] MEDS: FERROUS SULFATE 325 MG EC TABLET PO SCH ×2 (07:04→12:00)
[2018-07-06] MEDS: DIVALPROEX SODIUM 500 MG DR TABLET PO SCH ×2 (09:21→15:57)
[2018-07-06] MEDS: QUEtiapine FUMARATE 100 MG TABLET PO SCH (09:21)
[2018-07-06] MEDS ORDERED: QUET100T PO (09:59)
[2018-07-06] MEDS ORDERED: QUET200T PO (10:00)
[2018-07-06] MEDS ORDERED: FERR-89 PO (10:02)
[2018-07-06 17:00] VITALS: BP 99/69
== END 2018-07-06 17:35 | disposition home or self-care (01) | DRG 885 ==
LOC: EMS 18:18 → 3EX 22:30
PROVIDERS: ADMIT Psychiatry & Neurology Psychiatry; ATTEND Psychiatry & Neurology Psychiatry
DX: F25.9 Schizoaffective disorder, unspecified (principal); N39.0 Urinary tract infection, site not specified; N12 Tubulo-interstitial nephritis, not specified as acute or chronic; K59.00 Constipation, unspecified; F41.9 Anxiety disorder, unspecified; R45.1 Restlessness and agitation; E87.6 Hypokalemia; D50.9 Iron deficiency anemia, unspecified; E66.3 Overweight; Z68.28 Body mass index [BMI] 28.0-28.9, adult; Z91.19 Patient's noncompliance with other medical treatment and regimen
CPT/HCPCS: 80074; 82728; 83036; 83540; 83550; 84443; 87081; 96374; 96375; 99285; G0480; J1630; J2060

== ENCOUNTER 2018-09-02 12:56 | Inpatient (IN) | payer MEDICARE, MEDICAID ==
[~2018-09-02] VITALS: Ht 167.6 cm; Wt 83.9 kg
[~2018-09-02 12:56] MED LIST changes: -ARIP15TA2 PO; -BACTDSB PO; -BENZ1TAB10 PO; -BUSP5TAB3 PO; -CLON1 PO; -DIPH25 PO; -DOCU250C91 PO; +FERR-89 PO; +QUET100T PO; -SENN-175 PO; -TOPI25 PO; -[UNRECOGNIZED DRUG - CODE] PO
[2018-09-02 14:07] LABS: BASOPHILS % (AUTO) 0.6 % (0.0-2.0); EOSINOPHILS % (AUTO) 1.8 % (1.0-6.0); HEMATOCRIT 39.8 % (36-46); HEMOGLOBIN 13.4 g/dL (12.0-16.0); LYMPHOCYTES # (AUTO) 1.8 K/uL (1.0-4.8); LYMPHOCYTES % (AUTO) 26.8 % (22.0-44.0); MEAN CORPUSCULAR HEMOGLOBIN 30.7 pg (26.0-34.0); MEAN CORPUSCULAR HGB CONC 33.6 G/dL (31.0-37.0); MEAN CORPUSCULAR VOLUME 92 fL (80-100); MONOCYTES # (AUTO) 0.6 K/uL (0.1-1.0); MONOCYTES % (AUTO) 9.1 % (2.0-9.0); NEUTROPHILS # (AUTO) 4.1 K/uL (1.8-7.7); NEUTROPHILS % (AUTO) 61.7 % (40.0-70.0); PLATELET COUNT (AUTO) 227 K/uL (150-450); RED BLOOD CELL COUNT(AUTO) 4.36 MIL/uL (4.00-5.20); RED CELL DISTRIBUTION WIDTH 14.8 % (11.5-14.5)
[2018-09-02 14:18] LABS: ANION GAP 5 mmol/L (8-16); CALCIUM, TOTAL 8.6 mg/dL (8.8-10.5); CARBON DIOXIDE 31 mmol/L (22-29); CHLORIDE 103 mmol/L (98-107); GLOMERULAR FILTR. RATE CALC > 60 mL/min (>60); GLUCOSE,RANDOM 88 mg/dL (70-110); POTASSIUM 3.5 mmol/L (3.5-5.1); SODIUM SERUM 139 mmol/L (136-145); UREA NITROGEN, BLOOD 7 mg/dL (7-18)
[2018-09-02 14:29] LABS: ALANINE AMINOTRANSFERASE 15 U/L (12-78); ALKALINE PHOSPHATASE 80 U/L (46-116); ASPARTATE AMINOTRANSFERASE 14 U/L (15-37); BILIRUBIN,TOTAL 0.2 mg/dL (0.1-1.0); HCG,QUANTITATIVE 1 mIU/mL (0-6); LIPASE 162 U/L (73-393); TOTAL PROTEIN, SERUM 6.8 g/dL (6.4-8.2); VALPROIC ACID 50 mcg/mL (50-100)
[2018-09-02] MEDS ORDERED: HALOPERIDOL 5 MG TABLET PO PRN (16:15)
[2018-09-02] MEDS ORDERED: ZOLPIDEM TARTRATE 10 MG TABLET PO PRN (16:15)
[2018-09-02 18:44] VITALS: BP 138/91
[2018-09-02] MEDS ORDERED: CloNIDine HCL 0.1 MG TABLET PO PRN (19:45)
[2018-09-03 05:28] VITALS: BP 130/86
[2018-09-03 08:01] VITALS: BP 123/90
[2018-09-03] MEDS ORDERED: DIVA-78 PO (11:36)
[2018-09-03] MEDS ORDERED: QUET300T2 PO (11:36)
[2018-09-03 16:04] VITALS: BP 140/86
[2018-09-03] MEDS: DIVALPROEX SODIUM 500 MG DR TABLET PO SCH (16:29)
[2018-09-03] MEDS: QUEtiapine FUMARATE 300 MG TABLET PO SCH (16:29)
[2018-09-03] MEDS: ClonazePAM 0.5 MG TABLET PO SCH (20:28)
[2018-09-04 06:42] VITALS: BP 132/85
[2018-09-04 07:33] LABS: ALANINE AMINOTRANSFERASE 14 U/L (12-78); ALBUMIN 2.9 g/dL (3.4-5.0); ALKALINE PHOSPHATASE 76 U/L (46-116); ANION GAP 4 mmol/L (8-16); ASPARTATE AMINOTRANSFERASE 12 U/L (15-37); BILIRUBIN,TOTAL 0.2 mg/dL (0.1-1.0); CALCIUM, TOTAL 8.6 mg/dL (8.8-10.5); CARBON DIOXIDE 31 mmol/L (22-29); CHLORIDE 103 mmol/L (98-107); CHOLESTEROL 180 mg/dL (131-200); CREATININE 0.68 mg/dL (0.60-1.30); GLOMERULAR FILTR. RATE CALC > 60 mL/min (>60); GLUCOSE,RANDOM 77 mg/dL (70-110); HDL CHOLESTEROL 45 mg/dL (40-60); LDL CHOL (CALC.) 116 mg/dL (0-130); SODIUM SERUM 138 mmol/L (136-145); TOTAL PROTEIN, SERUM 6.6 g/dL (6.4-8.2); TRIGLYCERIDES 93 mg/dL (15-150); UREA NITROGEN, BLOOD 12 mg/dL (7-18)
[2018-09-04 08:14] VITALS: BP 140/94
[2018-09-04] MEDS: DIVALPROEX SODIUM 500 MG DR TABLET PO SCH ×2 (08:18→16:05)
[2018-09-04] MEDS: QUEtiapine FUMARATE 300 MG TABLET PO SCH ×2 (08:18→16:05)
[2018-09-04 09:20] VITALS: BP 111/70
[2018-09-04 16:08] VITALS: BP 113/62
[2018-09-04] MEDS: ClonazePAM 0.5 MG TABLET PO SCH (20:04)
[2018-09-05 04:37] VITALS: BP 110/68
[2018-09-05] MEDS: QUEtiapine FUMARATE 300 MG TABLET PO SCH ×2 (08:03→16:12)
[2018-09-05] MEDS: DIVALPROEX SODIUM 500 MG DR TABLET PO SCH ×2 (08:04→16:12)
[2018-09-05 08:09] VITALS: BP 116/74
[2018-09-05 16:11] VITALS: BP 120/80
[2018-09-05] MEDS: ClonazePAM 0.5 MG TABLET PO SCH (20:07)
[2018-09-06 05:06] VITALS: BP 110/72
[2018-09-06] MEDS: DIVALPROEX SODIUM 500 MG DR TABLET PO SCH ×2 (08:04→16:37)
[2018-09-06] MEDS: QUEtiapine FUMARATE 300 MG TABLET PO SCH ×2 (08:04→16:37)
[2018-09-06 08:09] VITALS: BP 131/79
[2018-09-06] MEDS ORDERED: BISACODYL 5 MG EC TABLET PO PRN (09:00)
[2018-09-06] MEDS: LORazepam 2 MG TABLET PO PRN (12:53)
[2018-09-06 16:01] VITALS: BP 125/76
[2018-09-06] MEDS: ClonazePAM 0.5 MG TABLET PO SCH (20:30)
[2018-09-07 05:57] VITALS: BP 126/80
[2018-09-07 08:01] VITALS: BP 130/70
[2018-09-07] MEDS: QUEtiapine FUMARATE 300 MG TABLET PO SCH ×2 (08:15→16:31)
[2018-09-07] MEDS: DIVALPROEX SODIUM 500 MG DR TABLET PO SCH ×2 (08:15→16:31)
[2018-09-07 16:21] VITALS: BP 135/90
[2018-09-07] MEDS: ClonazePAM 0.5 MG TABLET PO SCH (20:31)
[2018-09-08 05:45] VITALS: BP 129/86
[2018-09-08 07:55] VITALS: BP 133/94
[2018-09-08] MEDS: QUEtiapine FUMARATE 300 MG TABLET PO SCH ×2 (08:08→16:49)
[2018-09-08] MEDS: DIVALPROEX SODIUM 500 MG DR TABLET PO SCH ×2 (08:08→16:49)
[2018-09-08 09:15] VITALS: BP 133/94
[2018-09-08 17:17] VITALS: BP 112/76
[2018-09-08] MEDS: ClonazePAM 0.5 MG TABLET PO SCH (20:34)
[2018-09-09 05:30] VITALS: BP 120/81
[2018-09-09 08:04] VITALS: BP 137/65
[2018-09-09] MEDS: QUEtiapine FUMARATE 300 MG TABLET PO SCH ×2 (08:07→16:03)
[2018-09-09] MEDS: DIVALPROEX SODIUM 500 MG DR TABLET PO SCH ×2 (08:07→16:03)
[2018-09-09 16:02] VITALS: BP 118/84
[2018-09-09] MEDS: ClonazePAM 0.5 MG TABLET PO SCH (20:01)
[2018-09-10 03:53] VITALS: BP 120/81
[2018-09-10] MEDS: DIVALPROEX SODIUM 500 MG DR TABLET PO SCH ×2 (08:04→16:15)
[2018-09-10] MEDS: QUEtiapine FUMARATE 300 MG TABLET PO SCH ×2 (08:04→16:15)
[2018-09-10 08:27] VITALS: BP 128/60
[2018-09-10 16:01] VITALS: BP 138/73
[2018-09-10] MEDS: LORazepam 2 MG TABLET PO PRN (16:06)
[2018-09-10] MEDS: ClonazePAM 0.5 MG TABLET PO SCH (20:46)
[2018-09-11 08:28] VITALS: BP 117/75
[2018-09-11] MEDS: DIVALPROEX SODIUM 500 MG DR TABLET PO SCH ×2 (08:38→16:12)
[2018-09-11] MEDS: QUEtiapine FUMARATE 300 MG TABLET PO SCH ×2 (08:38→16:12)
[2018-09-11 16:04] VITALS: BP 117/64
[2018-09-11] MEDS: ClonazePAM 0.5 MG TABLET PO SCH (20:32)
[2018-09-12 04:45] VITALS: BP 120/81
[2018-09-12 08:02] VITALS: BP 109/62
[2018-09-12] MEDS: DIVALPROEX SODIUM 500 MG DR TABLET PO SCH ×2 (08:12→16:03)
[2018-09-12] MEDS: QUEtiapine FUMARATE 300 MG TABLET PO SCH ×2 (08:13→16:03)
[2018-09-12 16:01] VITALS: BP 121/73
[2018-09-12] MEDS: ClonazePAM 0.5 MG TABLET PO SCH (20:14)
[2018-09-13 04:37] VITALS: BP 128/86
[2018-09-13] MEDS: QUEtiapine FUMARATE 300 MG TABLET PO SCH (08:24)
[2018-09-13] MEDS: DIVALPROEX SODIUM 500 MG DR TABLET PO SCH (08:24)
[2018-09-13 08:41] VITALS: BP 124/76
== END 2018-09-13 15:40 | disposition home or self-care (01) | DRG 885 ==
LOC: EMS 12:58 → B2X 17:04
PROVIDERS: ADMIT Psychiatry & Neurology Psychiatry; ATTEND Psychiatry & Neurology Psychiatry
DX: F25.9 Schizoaffective disorder, unspecified (principal); F70 Mild intellectual disabilities; D64.9 Anemia, unspecified; E88.09 Other disorders of plasma-protein metabolism, not elsewhere classified; I10 Essential (primary) hypertension; R74.0 Nonspecific elevation of levels of transaminase and lactic acid dehydrogenase [LDH]; F41.9 Anxiety disorder, unspecified; R79.89 Other specified abnormal findings of blood chemistry; K59.00 Constipation, unspecified; Z87.440 Personal history of urinary (tract) infections; Z23 Encounter for immunization; Z79.899 Other long term (current) drug therapy
CPT/HCPCS: 90471; 90686; G0480